=== PATIENT | male | born 1985 | race Caucasian/White ===

== ENCOUNTER 2025-04-16 16:28 | Emergency (ER) | payer SELFPAY ==
[2025-04-16 16:29] VITALS: BP 140/96; PULSE 81; RESP 24; TEMP 37.5; O2SAT 94; BMI 21.9
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
--- NOTE | 2025-04-16 17:11 | RAD_ITS ---
PROCEDURE: HAND MIN 3 VIEWS 04/16/2025 REASON FOR EXAM: INJURY/PAIN TECHNIQUE: HAND MIN 3 VIEWS COMPARISON: None. FINDINGS: No acute fracture or dislocation. Alignment is anatomic. Carpal alignment is maintained. Preserved joint spaces. No aggressive osseous lesion. No appreciable soft tissue swelling or radiopaque foreign body. RAD/Hand Min 3 Views IMPRESSION: No acute fracture or dislocation. Reading Location: [id number]
[2025-04-16] MEDS: Lidocaine 1% (20 ml mdv) 20 ML Vial INFILT (17:28)
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
[2025-04-16 17:34] VITALS: BP 117/81; PULSE 85; RESP 20; O2SAT 99
[2025-04-16 18:00] VITALS: BP 120/89; PULSE 79; RESP 18; O2SAT 100
--- NOTE | 2025-04-16 18:01 | ED.RN ---
DR. JANUSZ CLEMENTS PLACED 4 AARTI AND 9 STITCHES INTO PT HEAD TO CLOSE LACERATION.
[2025-04-16 18:11] VITALS: BP 132/95; PULSE 85; RESP 15; TEMP 37.1; O2SAT 100
== END 2025-04-16 18:11 | disposition home or self-care (01) ==
PROVIDERS: Emergency Provider Emergency Medicine; Visit Provider Emergency Medicine
DX: S06.0X1A Concussion with loss of consciousness of 30 minutes or less, initial encounter (principal); S60.222A Contusion of left hand, initial encounter; S01.01XA Laceration without foreign body of scalp, initial encounter; Y08.02XA Assault by strike by baseball bat, initial encounter; R03.0 Elevated blood-pressure reading, without diagnosis of hypertension; Z87.891 Personal history of nicotine dependence
CPT/HCPCS: 12002; 70450; 73130; 99283